=== PATIENT | female | born 1980 | race Asian ===

== ENCOUNTER → 2024-06-04 | Outpatient (CLI) | payer BC, SELFPAY ==
--- NOTE | 2024-06-04 09:45 | XR_ITS ---
Examination: Screening digital mammography, bilateral Computer aided detection 3-D breast Tomosynthesis, bilateral Date and time of exam: June 04, 2024 0945 hours Indication: Screening Technique: Nonmagnified MLO, CC views of the breasts to been obtained, reconstructed from 3-D Tomosynthesis images. R2 computer aided detection program utilized for evaluation of suspicious masses and/or abnormal calcifications. 3-D Tomosynthesis images obtained. Findings: The breasts are heterogeneously dense, which may obscure small masses Multiple mildly prominent right axillary lymph nodes 8mm nodule upper right breast posterior depth MLO view, 12 cm from the nipple Impression: BI-RADS Category 0: Incomplete: Need additional imaging evaluation Multiple mildly prominent right axillary lymph nodes, recommend bilateral breast sonography follow-up Recommend follow-up spot tomographic views upper outer quadrant right breast posterior depth to evaluate 8 mm nodule upper right breast posterior depth
== END | disposition home or self-care (01) ==
LOC: CDIM 09:29
PROVIDERS: Referring Provider Internal Medicine; Visit Provider Internal Medicine
DX: Z12.31 Encounter for screening mammogram for malignant neoplasm of breast (principal); R92.8 Other abnormal and inconclusive findings on diagnostic imaging of breast; N63.11 Unspecified lump in the right breast, upper outer quadrant
CPT/HCPCS: 77063; 77067

== ENCOUNTER → 2024-08-12 | Outpatient (CLI) | payer BC, SELFPAY ==
--- NOTE | 2024-08-12 10:15 | XR_ITS ---
Examination: Breast ultrasound complete, bilateral Date and time of exam: August 12, 2024 1018 hours INDICATIONS: 8mm nodule upper right breast posterior depth 12 cm from the nipple on mammogram June 04, 2024 Technique: Real-time grayscale ultrasonographic imaging bilateral breasts, including all 4 quadrants as well as nipple retroareolar and axillary regions. Findings: Sonographic images right breast 10:00 nodule circumscribed 6 x 3 mm 21 mm x 42 mm axillary lymph node Sonographic images left breast No cystic or solid mass IMPRESSION: BI-RADS Category 3: Probably benign findings One additional 6 month right breast sonogram follow-up is needed
--- NOTE | 2024-08-12 11:15 | XR_ITS ---
Examination: Diagnostic digital mammography, unilateral, right Computer aided detection 3-D breast Tomosynthesis, unilateral Date and time of exam: August 12, 2024 1039 hours INDICATIONS: Mammogram June 04, 2024 8mm nodule upper right breast posterior depth Technique: Nonmagnified MLO, CC views of the right breast have been obtained, reconstructed from 3-D Tomosynthesis images. R2 computer aided detection program utilized for evaluation of suspicious masses and/or abnormal calcifications. 3-D Tomosynthesis images obtained. Findings: The breast is heterogeneously dense, which may obscure small masses 10:00 nodule right breast 5 mm circumscribed, probably benign Impression: BI-RADS category 3: Probably benign findings One additional 6 month right mammogram follow-up is needed
== END | disposition home or self-care (01) ==
PROVIDERS: PCP Internal Medicine; Referring Provider Internal Medicine; Visit Provider Internal Medicine
DX: N63.11 Unspecified lump in the right breast, upper outer quadrant (principal); R92.331 Mammographic heterogeneous density, right breast
CPT/HCPCS: 76641; 77061; 77065; G0279